=== PATIENT | male | born 1960 | race Caucasian/White ===

== ENCOUNTER 2025-07-10 13:08 | Emergency (ER) | payer OTHER ==
--- NOTE | 2025-07-10 13:09 | ERPHSYRPT ---
- History of Present Illness Time Seen by Provider: 07/10/25 13:09 Source: patient Exam Limitations: clinical condition Physician History: Patient brought in by vehicle after being difficult to arouse after dialysis session this morning. They reported blood pressure was 70/40. On arrival patient is difficult to arouse very slow to respond. He had an episode of bright red bloody emesis. Difficult to obtain history from patient due to his current clinical condition. Timing/Duration: today Allergies/Adverse Reactions: No Known Drug Allergies Allergy (Verified 07/10/25 13:32) Home Medications: Unobtainable 07/10/25 [History] - Review of Systems All Other Systems: Reviewed and Negative - Nursing Vital Signs Nursing Vital Signs: Initial Vital Signs Temperature 94.8 F 07/10/25 13:30 Pulse Rate 82 07/10/25 13:30 Respiratory Rate 14 07/10/25 13:30 Blood Pressure 142/54 07/10/25 13:30 O2 Sat by Pulse Oximetry 100 07/10/25 13:30 Pain Scale Pain Intensity 0 - Physical Exam General Appearance: lethargy, thin Respiratory Exam: normal breath sounds, lungs clear, airway intact, No respiratory distress Cardiovascular Exam: regular rate/rhythm, normal heart sounds, capillary refill <2 sec, edema Gastrointestinal/Abdomen Exam: soft, No tenderness, No distention, No guarding, No rebound Neurologic Exam: confusion Skin Exam: pale SpO2 Interpretation: normal O2 Delivery: Room Air - Course Nursing assessment & vital signs reviewed: Yes EKG Interpreted by Me: RATE (82), Sinus Rhythm, NORMAL AXIS, prolonged QT interval (483), Right Bundle Branch Block Ordered Tests: Active Orders 24 hr Category Date Time Status 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 Care 07/10/25 13:11 Completed Gastric Tube Insertion STAT Care 07/10/25 13:09 Completed IV Insertion STAT Care 07/10/25 13:09 Completed IV Insertion-2nd Peripheral STAT Care 07/10/25 13:09 Completed NPO (ED) STAT Care 07/10/25 13:09 Completed CHEST WITHOUT CONTRAST [CT] Stat Exams 07/10/25 13:19 Completed CTA ABD/PEL W AND/OR W/O CONTR [CT] Stat Exams 07/10/25 13:12 Completed HEAD WITHOUT CONTRAST [CT] Stat Exams 07/10/25 13:19 Completed CBC W DIFF Stat Lab 07/10/25 13:15 Completed CMP Stat Lab 07/10/25 13:15 Completed CULTURE,URINE Stat Lab 07/10/25 13:10 Received Folate (Folic Acid) Stat Lab 07/10/25 13:27 Completed Lactic Acid Stat Lab 07/10/25 13:19 Completed Lactic Acid Stat Lab 07/10/25 15:32 Completed MAGNESIUM Stat Lab 07/10/25 13:15 Completed Occult Blood-Fecal Screen (Diagnostic) [OB-FECAL SCREEN Lab 07/10/25 Ordered ] Stat PROTIME WITH INR Stat Lab 07/10/25 13:15 Completed PTT Stat Lab 07/10/25 13:15 Completed TSH, 3RD Generation Stat Lab 07/10/25 13:15 Completed UA W/RFX UR CULTURE Stat Lab 07/10/25 13:10 Completed Vitamin B12 Stat Lab 07/10/25 13:27 Completed Medication Summary Discontinued Medications Generic Name Dose Route Start Last Admin Trade Name Freq PRN Reason Stop Dose Admin Famotidine 40 mg 07/10/25 13:09 07/10/25 13:25 Famotidine 20 Mg/1 Vial IV 07/10/25 13:10 40 mg STAT ONE Administration Famotidine Confirm 07/10/25 13:13 Famotidine 20 Mg/1 Vial Administered 07/10/25 13:14 Dose 40 mg IV .STK-MED ONE Sodium Chloride 1,000 mls @ 999 mls/hr 07/10/25 13:09 07/10/25 13:24 Sodium Chloride 0.9% 1000 Ml IV 07/10/25 14:09 999 mls/hr .Q1H1M STA Administration Sodium Chloride Confirm 07/10/25 13:13 Sodium Chloride 0.9% 1000 Ml Administered 07/10/25 13:14 Dose 1,000 mls @ ud .ROUTE .STK-MED ONE Octreotide Acetate 250 mcg/ 250 mls @ 50 mls/hr 07/10/25 14:30 07/10/25 14:38 Sodium Chloride IV 07/10/25 19:29 50 mcg/hr .Q5H MICHEAL 50 mls/hr Administration 50 MCG/HR Sodium Chloride Confirm 07/10/25 14:29 Sodium Chloride 0.9% 1000 Ml Administered 07/10/25 14:30 Dose 1,000 mls @ ud .ROUTE .STK-MED ONE Albumin Human 50 mls @ 120 mls/hr 07/10/25 14:45 07/10/25 15:07 Alburx 25% 50ml Vial IV 07/10/25 15:09 120 mls/hr ONCE ONE Administration Sodium Chloride Confirm 07/10/25 15:19 Sodium Chloride 0.9% 1000 Ml Administered 07/10/25 15:20 Dose 1,000 mls @ ud .ROUTE .STK-MED ONE Ceftriaxone Sodium 1 gm in 100 mls @ 200 mls/hr 07/10/25 15:45 07/10/25 17:16 Rocephin 1 Gm / 100 Ml Nacl IV 07/10/25 16:14 Not Given STAT ONE Ceftriaxone Sodium Confirm 07/10/25 16:03 Rocephin 1 Gm / 100 Ml Nacl Administered 07/10/25 16:04 Dose 1 gm in 100 mls @ ud IV .STK-MED ONE Octreotide Acetate 50 mcg 07/10/25 14:17 07/10/25 13:50 Octreotide Acetate 50 Mcg/Ml Ampul IV 07/10/25 14:18 50 mcg STAT ONE Administration Ondansetron HCl 4 mg 07/10/25 13:09 07/10/25 13:25 Ondansetron Hcl 4 Mg/2 Ml Vial IV 07/10/25 13:10 4 mg STAT ONE Administration Ondansetron HCl Confirm 07/10/25 13:13 Ondansetron Hcl 4 Mg/2 Ml Vial Administered 07/10/25 13:14 Dose 4 mg .ROUTE .STK-MED ONE Pantoprazole Sodium 40 mg 07/10/25 13:09 07/10/25 13:24 Pantoprazole 40 Mg Vial IV 07/10/25 13:10 40 mg STAT ONE Administration Pantoprazole Sodium Confirm 07/10/25 13:13 Pantoprazole 40 Mg Vial Administered 07/10/25 13:14 Dose 40 mg IV .STK-MED ONE Prochlorperazine Edisylate Confirm 07/10/25 14:42 Prochlorperazine Edisylate 10 Mg/2 Ml Vial Administered 07/10/25 14:43 Dose 10 mg .ROUTE .STK-MED ONE Lab/Rad Data: Laboratory Result Diagrams 07/10/25 13:15 07/10/25 13:15 Laboratory Results 10/06/25 10/06/25 10/06/25 Range/Units 15:32 15:15 13:27 WBC (4.23-9.07) x10^3/uL RBC (4.63-6.08) x10^6/uL Hgb (13.7-17.5) g/dL Hct (40.1-51.0) % MCV (79.0-92.2) fL MCH (25.7-32.2) pg MCHC (32.3-36.5) g/dL RDW (11.6-14.4) % Plt Count (163-337) x10^3/uL MPV (9.4-12.4) fL Gran % (34.0-67.9) % Immature Gran % (Auto) (0.001-0.429) % Nucleat RBC Rel Count (0.00-0.2) % Eos # (Auto) (0.04-0.54) x10^3/uL Immature Gran # (Auto) (0.001-0.031) x10^3u/L Absolute Lymphs (auto) (1.32-3.57) x10^3/uL Absolute Monos (auto) (0.30-0.82) x10^3/uL Absolute Nucleated RBC (0.00-0.012) x10^3u/L Lymphocytes % (21.8-53.1) % Monocytes % (5.3-12.2) % Eosinophils % (0.8-7.0) % Basophils % (0.2-1.2) % Absolute Granulocytes (1.78-5.38) x10^3/uL Basophils # (0.01-0.08) x10^3/uL PT (9.4-12.5) SECONDS INR (0.8-3.0) APTT (25.1-36.5) SECONDS Sodium (135-145) mmol/L Potassium (3.5-5.1) mmol/L Chloride (98-107) mmol/L Carbon Dioxide (22-30) mmol/L Anion Gap (5-15) MEQ/L BUN (9-20) mg/dL Creatinine (0.66-1.25) mg/dL Estimated GFR ML/MIN Glucose (74-106) mg/dL Lactic Acid 2.2 H (0.4-2.0) Calcium (8.4-10.2) mg/dL Magnesium (1.6-2.3) mg/dL Total Bilirubin (0.2-1.3) mg/dL AST (17-59) U/L ALT (0-50) U/L Alkaline Phosphatase (38-126) U/L Ammonia 22 (9-30) umol/L Serum Total Protein (6.3-8.2) g/dL Albumin (3.5-5.0) g/dL Vitamin B12 926 (239-931) pg/mL Folic Acid 11.5 (2.76 - >20) ng/mL Free T4 (0.78-2.19) ng/dL TSH 3rd Generation (0.470-4.680) mIU/L Urine Color (Yellow) Urine Appearance (Clear) Urine pH (4.6-8.0) Ur Specific [place] (1.005-1.030) Urine Protein (Negative) Urine Glucose (UA) (Negative) mg/dL Urine Ketones (Negative) Urine Blood (Negative) Urine Nitrite (Negative) Urine Bilirubin (Negative) Urine Urobilinogen (0.2) mg/dL Ur Leukocyte Esterase (Negative) U Hyaline Cast (Auto) (0-2) /LPF Urine Microscopic RBC (0-5) /HPF Urine Microscopic WBC (0-5) /HPF Ur Epithelial Cells (None Seen) /HPF Urine Bacteria (None Seen) /HPF Urine Culture Reflexed (NO) ABO Group Rh Factor Antibody Screen (NEGATIVE) Crossmatch (COMPATIBLE) 07/10/25 07/10/25 07/10/25 Range/Units 13:20 13:20 13:20 WBC (4.23-9.07) x10^3/uL RBC (4.63-6.08) x10^6/uL Hgb (13.7-17.5) g/dL Hct (40.1-51.0) % MCV (79.0-92.2) fL MCH (25.7-32.2) pg MCHC (32.3-36.5) g/dL RDW (11.6-14.4) % Plt Count (163-337) x10^3/uL MPV (9.4-12.4) fL Gran % (34.0-67.9) % Immature Gran % (Auto) (0.001-0.429) % Nucleat RBC Rel Count (0.00-0.2) % Eos # (Auto) (0.04-0.54) x10^3/uL Immature Gran # (Auto) (0.001-0.031) x10^3u/L Absolute Lymphs (auto) (1.32-3.57) x10^3/uL Absolute Monos (auto) (0.30-0.82) x10^3/uL Absolute Nucleated RBC (0.00-0.012) x10^3u/L Lymphocytes % (21.8-53.1) % Monocytes % (5.3-12.2) % Eosinophils % (0.8-7.0) % Basophils % (0.2-1.2) % Absolute Granulocytes (1.78-5.38) x10^3/uL Basophils # (0.01-0.08) x10^3/uL PT (9.4-12.5) SECONDS INR (0.8-3.0) APTT (25.1-36.5) SECONDS Sodium (135-145) mmol/L Potassium (3.5-5.1) mmol/L Chloride (98-107) mmol/L Carbon Dioxide (22-30) mmol/L Anion Gap (5-15) MEQ/L BUN (9-20) mg/dL Creatinine (0.66-1.25) mg/dL Estimated GFR ML/MIN Glucose (74-106) mg/dL Lactic Acid (0.4-2.0) Calcium (8.4-10.2) mg/dL Magnesium (1.6-2.3) mg/dL Total Bilirubin (0.2-1.3) mg/dL AST (17-59) U/L ALT (0-50) U/L Alkaline Phosphatase (38-126) U/L Ammonia (9-30) umol/L Serum Total Protein (6.3-8.2) g/dL Albumin (3.5-5.0) g/dL Vitamin B12 (239-931) pg/mL Folic Acid (2.76 - >20) ng/mL Free T4 2.03 (0.78-2.19) ng/dL TSH 3rd Generation (0.470-4.680) mIU/L Urine Color (Yellow) Urine Appearance (Clear) Urine pH (4.6-8.0) Ur Specific [place] (1.005-1.030) Urine Protein (Negative) Urine Glucose (UA) (Negative) mg/dL Urine Ketones (Negative) Urine Blood (Negative) Urine Nitrite (Negative) Urine Bilirubin (Negative) Urine Urobilinogen (0.2) mg/dL Ur Leukocyte Esterase (Negative) U Hyaline Cast (Auto) (0-2) /LPF Urine Microscopic RBC (0-5) /HPF Urine Microscopic WBC (0-5) /HPF Ur Epithelial Cells (None Seen) /HPF Urine Bacteria (None Seen) /HPF Urine Culture Reflexed (NO) ABO Group B Rh Factor POSITIVE Antibody Screen NEGATIVE (NEGATIVE) Crossmatch COMPATIBLE (COMPATIBLE) 07/10/25 07/10/25 07/10/25 Range/Units 13:19 13:15 13:15 WBC (4.23-9.07) x10^3/uL RBC (4.63-6.08) x10^6/uL Hgb (13.7-17.5) g/dL Hct (40.1-51.0) % MCV (79.0-92.2) fL MCH (25.7-32.2) pg MCHC (32.3-36.5) g/dL RDW (11.6-14.4) % Plt Count (163-337) x10^3/uL MPV (9.4-12.4) fL Gran % (34.0-67.9) % Immature Gran % (Auto) (0.001-0.429) % Nucleat RBC Rel Count (0.00-0.2) % Eos # (Auto) (0.04-0.54) x10^3/uL Immature Gran # (Auto) (0.001-0.031) x10^3u/L Absolute Lymphs (auto) (1.32-3.57) x10^3/uL Absolute Monos (auto) (0.30-0.82) x10^3/uL Absolute Nucleated RBC (0.00-0.012) x10^3u/L Lymphocytes % (21.8-53.1) % Monocytes % (5.3-12.2) % Eosinophils % (0.8-7.0) % Basophils % (0.2-1.2) % Absolute Granulocytes (1.78-5.38) x10^3/uL Basophils # (0.01-0.08) x10^3/uL PT 11.4 (9.4-12.5) SECONDS INR 1.02 (0.8-3.0) APTT 27.4 (25.1-36.5) SECONDS Sodium 134 L (135-145) mmol/L Potassium 3.5 (3.5-5.1) mmol/L Chloride 101 (98-107) mmol/L Carbon Dioxide 29 (22-30) mmol/L Anion Gap 8.2 (5-15) MEQ/L BUN 19 (9-20) mg/dL Creatinine 2.01 H (0.66-1.25) mg/dL Estimated GFR 36.6 ML/MIN Glucose 179 H (74-106) mg/dL Lactic Acid 3.3 H (0.4-2.0) Calcium 7.5 L (8.4-10.2) mg/dL Magnesium 2.1 (1.6-2.3) mg/dL Total Bilirubin 1.00 (0.2-1.3) mg/dL AST 46 (17-59) U/L ALT 23 (0-50) U/L Alkaline Phosphatase 149 H (38-126) U/L Ammonia (9-30) umol/L Serum Total Protein 5.5 L (6.3-8.2) g/dL Albumin 2.7 L (3.5-5.0) g/dL Vitamin B12 (239-931) pg/mL Folic Acid (2.76 - >20) ng/mL Free T4 (0.78-2.19) ng/dL TSH 3rd Generation 1.406 (0.470-4.680) mIU/L Urine Color (Yellow) Urine Appearance (Clear) Urine pH (4.6-8.0) Ur Specific [place] (1.005-1.030) Urine Protein (Negative) Urine Glucose (UA) (Negative) mg/dL Urine Ketones (Negative) Urine Blood (Negative) Urine Nitrite (Negative) Urine Bilirubin (Negative) Urine Urobilinogen (0.2) mg/dL Ur Leukocyte Esterase (Negative) U Hyaline Cast (Auto) (0-2) /LPF Urine Microscopic RBC (0-5) /HPF Urine Microscopic WBC (0-5) /HPF Ur Epithelial Cells (None Seen) /HPF Urine Bacteria (None Seen) /HPF Urine Culture Reflexed (NO) ABO Group Rh Factor Antibody Screen (NEGATIVE) Crossmatch (COMPATIBLE) 07/10/25 07/10/25 Range/Units 13:15 13:10 WBC 5.8 (4.23-9.07) x10^3/uL RBC 2.13 L (4.63-6.08) x10^6/uL Hgb 7.3 L (13.7-17.5) g/dL Hct 21.4 L (40.1-51.0) % MCV 100.5 H (79.0-92.2) fL MCH 34.3 H (25.7-32.2) pg MCHC 34.1 (32.3-36.5) g/dL RDW 17.2 H (11.6-14.4) % Plt Count 122 L (163-337) x10^3/uL MPV 8.9 L (9.4-12.4) fL Gran % 64.6 (34.0-67.9) % Immature Gran % (Auto) 0.7 H (0.001-0.429) % Nucleat RBC Rel Count 0.0 (0.00-0.2) % Eos # (Auto) 0.26 (0.04-0.54) x10^3/uL Immature Gran # (Auto) 0.04 H (0.001-0.031) x10^3u/L Absolute Lymphs (auto) 1.23 L (1.32-3.57) x10^3/uL Absolute Monos (auto) 0.48 (0.30-0.82) x10^3/uL Absolute Nucleated RBC 0.00 (0.00-0.012) x10^3u/L Lymphocytes % 21.2 L (21.8-53.1) % Monocytes % 8.3 (5.3-12.2) % Eosinophils % 4.5 (0.8-7.0) % Basophils % 0.7 (0.2-1.2) % Absolute Granulocytes 3.74 (1.78-5.38) x10^3/uL Basophils # 0.04 (0.01-0.08) x10^3/uL PT (9.4-12.5) SECONDS INR (0.8-3.0) APTT (25.1-36.5) SECONDS Sodium (135-145) mmol/L Potassium (3.5-5.1) mmol/L Chloride (98-107) mmol/L Carbon Dioxide (22-30) mmol/L Anion Gap (5-15) MEQ/L BUN (9-20) mg/dL Creatinine (0.66-1.25) mg/dL Estimated GFR ML/MIN Glucose (74-106) mg/dL Lactic Acid (0.4-2.0) Calcium (8.4-10.2) mg/dL Magnesium (1.6-2.3) mg/dL Total Bilirubin (0.2-1.3) mg/dL AST (17-59) U/L ALT (0-50) U/L Alkaline Phosphatase (38-126) U/L Ammonia (9-30) umol/L Serum Total Protein (6.3-8.2) g/dL Albumin (3.5-5.0) g/dL Vitamin B12 (239-931) pg/mL Folic Acid (2.76 - >20) ng/mL Free T4 (0.78-2.19) ng/dL TSH 3rd Generation (0.470-4.680) mIU/L Urine Color Yellow (Yellow) Urine Appearance Clear (Clear) Urine pH 7.5 (4.6-8.0) Ur Specific [place] 1.015 (1.005-1.030) Urine Protein 30 (Negative) Urine Glucose (UA) 100 A (Negative) mg/dL Urine Ketones Trace A (Negative) Urine Blood Negative (Negative) Urine Nitrite Negative (Negative) Urine Bilirubin Negative (Negative) Urine Urobilinogen 1.0 A (0.2) mg/dL Ur Leukocyte Esterase Small A (Negative) U Hyaline Cast (Auto) 6-10 A (0-2) /LPF Urine Microscopic RBC 0-2 (0-5) /HPF Urine Microscopic WBC 6-10 A (0-5) /HPF Ur Epithelial Cells None Seen (None Seen) /HPF Urine Bacteria None Seen (None Seen) /HPF Urine Culture Reflexed YES (NO) ABO Group Rh Factor Antibody Screen (NEGATIVE) Crossmatch (COMPATIBLE) - Progress Progress: improved Progress Note: 07/10/25 13:16 Patient minimally responsive after dialysis today. Initial blood pressure elevated. Glucose 179. Patient had a large volume emesis with bright red blood. 2 peripheral IVs ordered to be placed. Protonix, Pepcid and Zofran ordered. NG tube to be placed. Type and screen and 1 unit of packed red blood cells ordered. Hemoglobin reported to be 7.2 at residential today. CTA abdomen pelvis ordered to evaluate for intra-abdominal bleed. 07/10/25 14:12 Patient is a difficult stick to obtain IV access so central venous line was attempted. He has a temporary dialysis catheter in place of femoral was attempted on the right side. His femoral vein was directly under the femoral artery and due to his volume depletion there was no obtainable angle to achieve access on the right or the left. 1 attempt made on the right side without success. Anesthesia contacted for midline placement. 07/10/25 15:46 Midline obtained by anesthesia. Discussed case with Dr. Manley (hepatology) at who accepts at 1545. She recommended adding Ceftriaxone 1g and continuing current management. 07/10/25 15:49 At 1549 we were notified by that he will be going ER to ER at [facility]. Counseled pt/family regarding: lab results, diagnosis, need for follow-up, rad results Medical Desision Making - Discussion of managment Care discussed with:: specialist Reviewed:: Test results, Need for additional workup Agreed on:: Treatment plan Will see patient: in hospital - Diagnostic Testing Diagnostic test were ordered, analyzed, and reviewed by me: Yes Radiological Interpretation: Interpreted by me, Reviewed by me, Teleradiologist Report - Risk of complications The pt has a mod risk of morbidity or mortality based on: Need for prescription drug management The pt has a high risk of morbidity or mortality based on: Decision regarding hospitilization or escalation of hosp level of care - Departure Departure Disposition: Transfer () Clinical Impression: Esophageal varices with bleeding, Renal failure, Portal hypertension, Anemia Condition: Serious Critical Care Time: Yes Critical Care Time(excluding separately billable procedures): Critical 30-74 mins Referrals: DOCTOR,NO FAMILY [NON-STAFF PHY W/O PRIVILEGES, UNKNOWN] - Follow up/PCP as directed
[2025-07-10] MEDS ORDERED: PROTONIX 40 MG IV IV ONE (13:13)
[2025-07-10] MEDS ORDERED: Pepcid 20 MG VIAL IV ONE (13:13)
[2025-07-10] MEDS ORDERED: Zofran 4 MG/2 ML VIAL ONE (13:13)
[2025-07-10] MEDS: PROTONIX 40 MG IV IV ONE (13:24)
[2025-07-10] MEDS: Zofran 4 MG/2 ML VIAL IV ONE (13:25)
[2025-07-10] MEDS: Pepcid 20 MG VIAL IV ONE (13:25)
[2025-07-10 13:30] LABS: BASOPHIL % 0.7 % (0.2-1.2); Basophil (Absolute #) 0.04 x10^3/uL (0.01-0.08); Eosinophil (Absolute #) 0.26 x10^3/uL (0.04-0.54); Hematocrit 21.4 % (40.1-51.0); Hemoglobin 7.3 g/dL (13.7-17.5); IMMATURE GRAN # 0.04 x10^3u/L (0.001-0.031); IMMATURE GRAN % 0.7 % (0.001-0.429); Lymphocyte (Absolute #) 1.23 x10^3/uL (1.32-3.57); Mean Corpuscular Hemoglobin 34.3 pg (25.7-32.2); Mean Corpuscular Hgb Concent. 34.1 g/dL (32.3-36.5); Monocyte (Absolute #) 0.48 x10^3/uL (0.30-0.82); NUCLEATED RBC # 0.00 x10^3u/L (0.00-0.012); NUCLEATED RBC % 0.0 % (0.00-0.2); Platelet Count 122 x10^3/uL (163-337); Red Blood Count 2.13 x10^6/uL (4.63-6.08); White Blood Count 5.8 x10^3/uL (4.23-9.07)
[2025-07-10 13:31] VITALS: O2SAT 100
[2025-07-10 13:43] LABS: INR 1.02 (0.8-3.0); PROTIME 11.4 SECONDS (9.4-12.5); PTT 27.4 SECONDS (25.1-36.5)
[2025-07-10] MEDS: SANDOSTATIN 50MCG/ML IV ONE (13:50)
[2025-07-10 14:13] LABS: Calcium 7.5 mg/dL (8.4-10.2); Carbon Dioxide 29.0 mmol/L (22-30); Creatinine 1 2.01 mg/dL (0.66-1.25); EST GLOMERULAR FILTRATION RATE 36.6 ML/MIN; Glucose 179.0 mg/dL (74-106); Potassium 3.5 mmol/L (3.5-5.1); SGOT/AST 46.0 U/L (17-59); SGPT/ALT 23.0 U/L (0-50); Total Protein 5.5 g/dL (6.3-8.2)
[2025-07-10] MEDS ORDERED: AlbuRx 25% 50ML VIAL IV ONE (14:33)
[2025-07-10 14:37] LABS: ABO TYPING B; RH TYPING POSITIVE
[2025-07-10] MEDS: SODIUM CHLORIDE 0.9% IV SCH (14:38)
[2025-07-10] MEDS: SANDOSTATIN IV SCH (14:38)
[2025-07-10 14:40] LABS: CROSS MATCH (PRBC) COMPATIBLE (COMPATIBLE)
[2025-07-10] MEDS ORDERED: Compazine 10 MG/2 ML ONE (14:42)
[2025-07-10] MEDS: AlbuRx 25% 50ML VIAL*** 50 ML IV ONE (15:07)
[2025-07-10] MEDS ORDERED: ROCEPHIN 1 GM / 100 ML NaCl 1 GM/100 ML IVPB IV ONE (16:03)
[2025-07-10 16:50] VITALS: TEMP 96.6
[2025-07-10 17:02] VITALS: BP 124/59; PULSE 75; RESP 9
[2025-07-10] MEDS: ROCEPHIN 1 GM / 100 ML NaCl 1 GM/100 ML IVPB IV ONE (17:16)
[2025-07-10 17:25] LABS: Glucose, Urine 100 mg/dL (Negative); Protein,Urine Dip 30 (Negative); RBC 0-2 /HPF (0-5)
--- NOTE | 2025-07-10 17:26 | XRAY ---
Indication: Confusion. Altered mental status. Multiple contiguous axial images obtained through the head without contrast. Comparison: None Normal appearing brain parenchyma, ventricles, and bony calvarium for patient's age. Visualized paranasal sinuses and mastoid air cells are clear. Impression: Normal CT head without contrast exam.
--- NOTE | 2025-07-10 17:27 | XRAY ---
Indication: Aspiration. Multiple contiguous axial images obtained through the chest without contrast. Comparison: None Diffuse respiration artifact throughout limits exam. Mild bilateral deep atelectasis and tiny nonspecific bilateral effusions. No focal infiltrate, pulmonary mass/nodule, or pneumothorax. Heart not enlarged with incidental left double-lumen dialysis catheter. Aorta is normal in course and caliber. No pathologic mediastinal lymphadenopathy. Bony thorax intact. CT abdomen/pelvis reported separately. Impression: 1. Diffuse respiration artifact. 2. Tiny nonspecific bilateral effusions. 3. Remaining CT chest without contrast is grossly negative.
--- NOTE | 2025-07-10 17:37 | XRAY ---
Indication: Hematemesis. Conventional contrast enhanced CTA abdomen/pelvis performed using 80 cc Isovue 370 contrast. 2-D sagittal and coronal reformatted images obtained. Additional 3-D reformatted images obtained using separate workstation. Comparison: None CT chest reported separately. Numerous left upper quadrant aneurysm coils produces beam artifact limiting exam. Abdominal aorta is minimally arteriosclerotic without aneurysm/dissection. Widely patent branching celiac, superior mesenteric, and inferior mesenteric arteries. A single patent renal artery supplies each kidney. Noncontrasted stomach and bowel loops appear nonobstructed. Mild diffuse scatter colonic fecal debris throughout with mild rectal fecal impaction. Cirrhotic appearing liver with TIPS stent in situ. Tiny abdominal/pelvic ascites. No obvious walled off fluid collection or free air. Gallbladder demonstrates a few gallstones in the neck of the gallbladder, largest 1 cm. No abnormal biliary distention. Spleen enlarged measuring 14.5 cm with tiny cysts. Near empty urinary bladder demonstrates Rivera balloon catheter in situ. Remaining pancreas, adrenal glands, kidneys, and ureters are unremarkable. No pathologic retroperitoneal lymphadenopathy. Osseous structures intact with minimal/mild degenerative changes throughout spine and both hips. Impression: 1. Beam artifact from left upper quadrant aneurysm coils. 2. Minimally arteriosclerotic abdominal aorta. Otherwise grossly normal CTA abdomen/pelvis. 3. Mild diffuse fecal stasis with rectal fecal impaction. 4. Incidental cirrhotic liver with tiny abdominal/pelvic ascites, splenomegaly, splenic cysts, gallstones, and chronic bony findings.
== END 2025-07-10 17:39 | disposition short-term general hospital (02) ==
LOC: ED 13:08
DX: K76.6 Portal hypertension (principal); I85.11 Secondary esophageal varices with bleeding; D50.0 Iron deficiency anemia secondary to blood loss (chronic); N18.6 End stage renal disease; Z99.2 Dependence on renal dialysis
CPT/HCPCS: 36410; 36415; 36430; 51702; 70450; 71250; 74174; 80053; 81001; 82140; 82607; 82746; 83605; 83735; 84439; 84443; 85025; 85610; 85730; 86850; 86900; 86901; 86922; 87086; 93041; 96374; 96375; 96376; 99291; P9016